=== PATIENT | female | born 1975 | race Hispanic/Latino ===

== ENCOUNTER 2018-04-19 20:55 | Emergency (ER) | payer OTHER, SELFPAY ==
[2018-04-19 20:55] VITALS: BMI 31.3
[2018-04-19 21:23] VITALS: BP 136/90; PULSE 97; RESP 16; TEMP 98; O2SAT 100
[2018-04-19] MEDS ORDERED: Tmp-Smz 800 mg-160 mg DS Tab PO STA (21:29)
[2018-04-19] MEDS ORDERED: Naproxen 550 mg Tab PO STA (21:29)
[2018-04-19] MEDS ORDERED: Bacitracin 500 Units/gm Oint Foilpak UD TOP ONE (21:30)
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
[2018-04-19] MEDS ORDERED: Naproxen 550 mg Tab PO ONE (21:36)
[2018-04-19] MEDS ORDERED: Tmp-Smz 800 mg-160 mg DS Tab ONE (21:37)
[2018-04-19] MEDS ORDERED: Bacitracin 500 Units/gm Oint Foilpak UD ONE (21:37)
== END 2018-04-19 21:50 | disposition home or self-care (01) ==
LOC: C.ER 20:55
DX: L03.116 Cellulitis of left lower limb (principal); E03.9 Hypothyroidism, unspecified; Z72.0 Tobacco use

== ENCOUNTER 2018-04-23 20:55 | Emergency (ER) | payer OTHER ==
[2018-04-23 20:56] VITALS: BMI 31.3
[2018-04-23] MEDS ORDERED: DiphenhydrAMINE 50 mg/ml Inj IVP STA ×2 (21:42→22:33)
[2018-04-23] MEDS ORDERED: Sodium Chloride 0.9% 1,000 ML IV ONE (21:42)
--- NOTE | 2018-04-23 21:42 | C.PDOC ---
History Of Present Illness 42 y/o female presents to ED with c/o diffuse urticaria rash developed 1 hour prior to arrival. Patient states etiology is unknown, is tolerating po intake and denies fever, chills, sob, new detergents or any other complaints at this time. Time Seen by Provider: 04/23/18 21:41 Chief Complaint (Nursing): Allergic Reaction History Per: Patient History/Exam Limitations: no limitations Onset/Duration Of Symptoms: Hrs Current Symptoms Are (Timing): Still Present Possible Cause: Unknown Associated Symptoms: Skin Rash. denies: Swelling, Chest Pain Home/EMS Treatment: None Severity: Mild Pain Scale Rating Of: 2 Past Medical History Reviewed: Historical Data, Nursing Documentation, Vital Signs Vital Signs: Last Vital Signs Temp 98.5 F 04/24/18 00:58 Pulse 98 H 04/24/18 00:58 Resp 16 04/24/18 00:58 BP 116/77 04/24/18 00:58 Pulse Ox 100 04/24/18 00:58 - Medical History PMH: Asthma, Hypothyroidism Surgical History: Cholecystectomy Family History: States: No Known Family Hx - Social History Hx Tobacco Use: Yes Hx Alcohol Use: No Hx Substance Use: No - Immunization History Hx Tetanus Toxoid Vaccination: No Hx Influenza Vaccination: No Hx Pneumococcal Vaccination: No Review Of Systems Constitutional: Negative for: Fever, Chills Cardiovascular: Negative for: Chest Pain Respiratory: Negative for: Cough, Shortness of Breath Gastrointestinal: Negative for: Nausea, Vomiting Skin: Positive for: Rash Physical Exam - Physical Exam Appears: Non-toxic, No Acute Distress Skin: Warm, Dry, Rash (diffuse urticaria through body) Head: Normacephalic Eye(s): bilateral: PERRL, EOMI Oral Mucosa: Moist Tongue: No Swelling Throat: No Erythema, No Exudate, No Drooling Neck: Supple Cardiovascular: Rhythm Regular Respiratory: No Rales, No Rhonchi, No Wheezing Gastrointestinal/Abdominal: Soft, No Tenderness, No Guarding, No Rebound Extremity: Capillary Refill (<2 seconds), No Deformity, No Swelling Neurological/Psych: Oriented x3, Normal Speech, Normal Cognition ED Course And Treatment O2 Sat by Pulse Oximetry: 98 (RA) Pulse Ox Interpretation: Normal Reevaluation Time: 01:01 Reassessment Condition: Improved Critical Care Time - Critical Care Note Total Time (in mins): 30 Documented critical care: time excludes all time spent performing seperately billable procedures. Medical Decision Making Medical Decision Making: Upon provider reevaluation patient is feeling better, is medically stable, and requires no further treatment in the ED at this time. Patient will be discharged home with Rx for prednisone, epipen . Counseling was provided and all questions were answered regarding diagnosis and need for follow up with dr witt. There is agreement to discharge plan. Return if symptoms persist or worsen. Disposition Counseled Patient/Family Regarding: Studies Performed, Diagnosis, Need For Followup, Rx Given - Disposition Referrals: Omar Witt MD [Medical Doctor] - Disposition: HOME/ ROUTINE Disposition Time: 21:42 Condition: FAIR Additional Instructions: Please return if symptoms recur. May also use benadryl, pepcid and claritin Prescriptions: Epinephrine [Epipen] 0.3 mg IJ ONCE PRN #2 auto.injct PRN Reason: Anaphylaxis Prednisone [Deltasone] 20 mg PO DAILY #5 tablet Instructions: Hives, Skin Rash (DC) Forms: [employer] (Syriac) - Clinical Impression Clinical Impression: Allergic reaction - Scribe Statement The provider has reviewed the documentation as recorded by the Scribe Ryan Mazariegos All medical record entries made by the Scribe were at my direction and personally dictated by me. I have reviewed the chart and agree that the record accurately reflects my personal performance of the history, physical exam, medical decision making, and the department course for this patient. I have also personally directed, reviewed, and agree with the discharge instructions and disposition.
[2018-04-23] MEDS ORDERED: DiphenhydrAMINE 50 mg/ml Inj ONE ×2 (21:48→22:33)
[2018-04-23] MEDS ORDERED: Sodium Chloride 0.9% 1,000 ML ONE (21:49)
[2018-04-24 00:59] VITALS: BP 116/77; PULSE 98; RESP 16; TEMP 98.5
[2018-04-24 01:04] VITALS: O2SAT 98
== END 2018-04-24 01:11 | disposition home or self-care (01) ==
LOC: C.ER 20:55
DX: L50.0 Allergic urticaria (principal)
CPT/HCPCS: 96361; 96374; 96375; 96376; 99284; J1200; J2930; J7030

== ENCOUNTER 2018-05-13 01:51 | Emergency (ER) | payer OTHER ==
[2018-05-13 01:51] VITALS: BMI 31.3
[2018-05-13 01:59] VITALS: BP 128/80; PULSE 98; RESP 16; TEMP 97.6; O2SAT 97
[2018-05-13] MEDS ORDERED: Naproxen 550 mg Tab PO STA (02:20)
[2018-05-13] MEDS ORDERED: Naproxen 550 mg Tab PO ONE (02:27)
--- NOTE | 2018-05-13 03:08 | C.PDOC ---
History Of Present Illness 42 year old female presents to the ED complaining of right knee pain ongoing for 2 days. Patient states she took Tylenol with no relief. She denies any trauma/injuries or history of similar episodes. She denies any weakness, numbness, or tingling. Time Seen by Provider: 05/13/18 02:04 Chief Complaint (Nursing): Lower Extremity Problem/Injury History Per: Patient History/Exam Limitations: no limitations Onset/Duration Of Symptoms: Days Current Symptoms Are (Timing): Still Present Severity: Mild - Knee Description Of Injury: Other Past Medical History Reviewed: Historical Data, Nursing Documentation, Vital Signs Vital Signs: Last Vital Signs Temp 97.6 F 05/13/18 01:57 Pulse 98 H 05/13/18 01:57 Resp 16 05/13/18 01:57 BP 128/80 05/13/18 01:57 Pulse Ox 97 05/13/18 03:45 - Medical History PMH: Asthma, Hypothyroidism Denies: Chronic Kidney Disease Surgical History: Cholecystectomy Family History: States: No Known Family Hx - Social History Hx Tobacco Use: Yes Hx Alcohol Use: No Hx Substance Use: No - Immunization History Hx Tetanus Toxoid Vaccination: No Hx Influenza Vaccination: No Hx Pneumococcal Vaccination: No Review Of Systems Except As Marked, All Systems Reviewed And Found Negative. Musculoskeletal: Positive for: Other (Right knee pain ) Neurological: Negative for: Weakness, Numbness Physical Exam - Physical Exam Appears: Non-toxic, No Acute Distress Skin: Warm, Dry Head: Atraumatic, Normacephalic Eye(s): bilateral: Normal Inspection, EOMI Nose: Normal Oral Mucosa: Moist Neck: Supple Chest: Symmetrical Cardiovascular: Rhythm Regular Respiratory: Normal Breath Sounds, No Accessory Muscle Use, Other (speaking full sentences) Extremity: Normal ROM, Tenderness (Diffused tenderness to right knee ), No Calf Tenderness, No Swelling, No Other (increased warmth ) Extremity: Bilateral: Atraumatic, Normal Color And Temperature, Normal ROM Pulses: Left Dorsalis Pedis: Normal, Right Dorsalis Pedis: Normal Neurological/Psych: Oriented x3, Normal Speech, Normal Motor, Normal Sensation Gait: Steady ED Course And Treatment O2 Sat by Pulse Oximetry: 97 (RA) Pulse Ox Interpretation: Normal Progress Note: Patient eloped prior to reevaluation. Disposition - Disposition Referrals: Nilson Jacobo MD [Staff Provider] - Disposition: HOME/ ROUTINE Disposition Time: 03:20 Condition: STABLE Additional Instructions: Follow up with the orthopedist in 1-2 days. Prescriptions: Naproxen [Naprosyn] 1 tab PO BID PRN #20 tab PRN Reason: Pain Instructions: Knee Pain (DC) Forms: [employer] (Haitian) - Clinical Impression Clinical Impression: Knee pain - PA / LUMBER ESTIMATOR / Resident Statement MD/DO has reviewed & agrees with the documentation as recorded. - Scribe Statement The provider has reviewed the documentation as recorded by the Scribkeiry Stein All medical record entries made by the Clifton were at my direction and personally dictated by me. I have reviewed the chart and agree that the record accurately reflects my personal performance of the history, physical exam, medical decision making, and the department course for this patient. I have also personally directed, reviewed, and agree with the discharge instructions and disposition.
== END 2018-05-13 03:35 | disposition home or self-care (01) ==
LOC: C.ER 01:51
DX: M25.561 Pain in right knee (principal)

== ENCOUNTER 2018-06-02 20:42 | Emergency (ER) | payer OTHER ==
[2018-06-02 20:42] VITALS: BMI 31.3
[2018-06-02 20:55] VITALS: RESP 20; TEMP 97.9; O2SAT 95
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
[2018-06-02 22:36] LABS: HCG,QUALITATIVE URINE POSITIVE (NEGATIVE)
[2018-06-02 22:40] LABS: SQUAMOUS EPITHIAL 7 /hpf (0-5); URINE BACTERIA FEW (<OCC); URINE BILIRUBIN NEGATIVE (NEGATIVE); URINE BLOOD 1+ (NEGATIVE); URINE CALCIUM OXALATE CRYSTALS RARE /hpf (<OCC); URINE CLARITY Hazy (Clear); URINE COLOR Yellow (YELLOW); URINE GLUCOSE (UA) NORMAL (Normal); URINE LEUKOCYTE ESTERASE 3+ Leu/uL (Negative); URINE PROTEIN NEGATIVE (NEGATIVE); URINE UROBILINOGEN NORMAL mg/dL (0.2-1.0)
[2018-06-02 23:57] VITALS: BP 124/80; PULSE 98
== END 2018-06-03 00:14 | disposition home or self-care (01) ==
LOC: C.ER 20:42
DX: O9A.411 Sexual abuse complicating pregnancy, first trimester (principal); O23.41 Unspecified infection of urinary tract in pregnancy, first trimester; Z3A.08 8 weeks gestation of pregnancy

== ENCOUNTER 2018-09-25 16:45 | Emergency (ER) | payer MEDICAID, OTHER ==
[2018-09-25 16:45] VITALS: BMI 31.3
[2018-09-25 16:54] VITALS: O2SAT 97
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
[2018-09-25 18:41] LABS: BASO # 0.1 K/uL (0.0-0.2); BASO % 0.9 % (0.0-2.0); EOS # 0.1 K/uL (0.0-0.7); EOS % 0.7 % (0.0-4.0); HEMOGLOBIN 12.7 g/dL (11.0-16.0); LYMPH # 2.5 K/uL (1.0-4.3); LYMPH % 16.2 % (20.0-40.0); MEAN CELL VOLUME 86.4 fL (81.0-99.0); MEAN CORPUSCULAR HEMOGLOBIN 29.6 pg (27.0-31.0); MEAN CORPUSCULAR HGB CONC 34.2 g/dL (33.0-37.0); MEAN PLATELET VOLUME 8.3 fL (7.2-11.7); MONO # 0.6 K/uL (0.0-0.8); MONO % 4.1 % (0.0-10.0); NEUT # 12.3 K/uL (1.8-7.0); NEUT % 78.1 % (50.0-75.0); NRBC % 0.1 % (0.0-2.0); RBC 4.3 Mil/uL (3.80-5.20); WHITE BLOOD COUNT 15.7 K/uL (4.8-10.8)
[2018-09-25 18:44] LABS: SQUAMOUS EPITHIAL 1 /hpf (0-5); URINE BACTERIA RARE (<OCC); URINE BILIRUBIN NEGATIVE (NEGATIVE); URINE BLOOD 2+ (NEGATIVE); URINE CLARITY Clear (Clear); URINE COLOR Straw (YELLOW); URINE GLUCOSE (UA) NORMAL (Normal); URINE LEUKOCYTE ESTERASE NEG Leu/uL (Negative); URINE PROTEIN NEGATIVE (NEGATIVE); URINE UROBILINOGEN NORMAL mg/dL (0.2-1.0)
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
[2018-09-25] MEDS ORDERED: Lidocaine 1% Inj (20ml) INFIL ONE (19:01)
[2018-09-25 19:04] LABS: BARBITURATES, UR NEGATIVE (NEGATIVE); BENZODIAZEPINES, UR NEGATIVE (NEGATIVE); OPIATES, UR NEGATIVE (NEGATIVE)
[2018-09-25 19:05] LABS: PHENCYCLIDINE, UR POSITIVE (NEGATIVE)
[2018-09-25] MEDS ORDERED: Lidocaine Hydrochloride 5 ML INJ ONE (19:05)
[2018-09-25] MEDS ORDERED: Lidocaine 2% MPF (5 ml) Inj ONE (20:02)
[2018-09-25 20:14] VITALS: BP 129/77; PULSE 96; RESP 16; TEMP 98.6
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
== END 2018-09-25 21:02 | disposition left against medical advice (07) ==
LOC: C.ER 16:45
DX: O9A.212 Injury, poisoning and certain other consequences of external causes complicating pregnancy, second trimester (principal); S01.511A Laceration without foreign body of lip, initial encounter; S09.90XA Unspecified injury of head, initial encounter; Y04.0XXA Assault by unarmed brawl or fight, initial encounter; O26.892 Other specified pregnancy related conditions, second trimester; R10.9 Unspecified abdominal pain; Z3A.27 27 weeks gestation of pregnancy
CPT/HCPCS: 12011; 12051; 70450; 70486; 76815; 81001; 85025; 86850; 86900; 99285; G0480

== ENCOUNTER 2018-10-05 11:41 | Emergency (ER) | payer MEDICAID ==
[2018-10-05 11:42] VITALS: BMI 31.3
[2018-10-05 11:54] VITALS: BP 133/81; PULSE 90; RESP 16; TEMP 98; O2SAT 99
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
== END 2018-10-05 12:04 | disposition home or self-care (01) ==
LOC: C.ER 11:41
DX: Z48.02 Encounter for removal of sutures (principal)